=== PATIENT | male | born 1940 | race Caucasian/White ===

== ENCOUNTER → 2016-09-12 | Outpatient (CLI) | payer MEDICARE, BC | END | disposition home or self-care (01) | LOC: PCVCIMAG 10:29 | PROVIDERS: ATTEND Internal Medicine Cardiovascular Disease | DX: I25.10 Atherosclerotic heart disease of native coronary artery without angina pectoris (principal); I48.91 Unspecified atrial fibrillation; E78.00 Pure hypercholesterolemia, unspecified; I10 Essential (primary) hypertension; G47.30 Sleep apnea, unspecified | CPT/HCPCS: 80061; 93005; 93306; G0463 ==

== ENCOUNTER → 2017-01-12 | Outpatient (CLI) | payer MEDICARE, BC ==
--- NOTE | 2017-01-12 17:54 | PCVCIMAG ---
APPROVED REPORT Exam: Stress Echocardiogram Indication: Paroxysmal Atrial Fibrillation, coronary atherosclerosis Patient Location: Echo lab Stress Nurse: Keyla Russo RN Status: routine HR: 68 bpm Rhythm: NSR Procedure The patient underwent an Exercise Stress Test using the Beck Protocol. Blood pressure, heart rate, and EKG were monitored. An Echocardiogram was performed by hydro technician in four stages in quad fashion. At peak stress, four selected images were obtained and placed side by side with resting images for comparison. Stress Test Details Stress Test: Exercise stress testing was performed using a Beck protocol. HR Resting HR: 68 bpmMax Heart Rate (APMHR): 146 bpm Max HR Achieved: 136 bpmTarget HR (85% APMHR): 124 bpm % of APMHR: 93 Recovery HR: 71 bpm HR response to stress: Normal HR response to stress BP ECG Resting ECG: Sinus Rhythm Stress ECG: Sinus Rhythm Arrhythmia: 3 beats of SVT Recovery ECG: NSR w/ non-specific ST abnormality Recovery Arrhythmia: None Clinical Reason for Termination: Maximal effort Stress Symptoms: Dyspnea Exercise duration: 6 min 53 sec Highest Stage Achieved: Stage 3: 3.4 mph at 14% grade. Exercise capacity: 9.6 METs Pre-Stress Echo The resting Echocardiogram showed normal left ventricular contractility with an estimated Ejection Fraction of about 50-55%. Normal wall motion in all segments on baseline images. Post-Stress Echo The stress Echocardiogram showed normal left ventricular contractility with an estimated Ejection Fraction of about 60-65%. Normal augmentation of wall motion in all segments on post stress images. Clinical No clinical or ECG evidence for ischemia. Conclusion Clinical Response: Non-ischemic Stress ECG Response: Equivocal Stress Echo Images: Non-ischemic
== END | disposition home or self-care (01) ==
LOC: PCVCIMAG 09:37
PROVIDERS: ATTEND Internal Medicine Cardiovascular Disease
DX: I25.10 Atherosclerotic heart disease of native coronary artery without angina pectoris (principal); I48.0 Paroxysmal atrial fibrillation; I10 Essential (primary) hypertension
CPT/HCPCS: 93325; 93351

== ENCOUNTER → 2017-09-28 | Outpatient (CLI) | payer MEDICARE, BC | END | disposition home or self-care (01) | LOC: PCVCCLINIC 11:00 | DX: I25.10 Atherosclerotic heart disease of native coronary artery without angina pectoris (principal); I10 Essential (primary) hypertension; E78.00 Pure hypercholesterolemia, unspecified; I71.2 Thoracic aortic aneurysm, without rupture; I48.0 Paroxysmal atrial fibrillation; Z79.899 Other long term (current) drug therapy | CPT/HCPCS: 80061; 93005; G0463 ==

== ENCOUNTER → 2018-02-03 | Outpatient (CLI) | payer MEDICARE, BC ==
[~2018-02-03] MED LIST: REGADENOSON 0.4 MG/5 ML DISP.SYRIN. IV
== END | disposition home or self-care (01) ==
LOC: PCVCIMAG 07:59
DX: I25.10 Atherosclerotic heart disease of native coronary artery without angina pectoris (principal); R06.09 Other forms of dyspnea
CPT/HCPCS: 78452; 93017; A9500; J2785

== ENCOUNTER → 2018-06-23 | Outpatient (CLI) | payer MEDICARE, BC ==
--- NOTE | 2018-06-23 14:39 | PCVCIMAG ---
APPROVED REPORT Study performed: 06/23/2018 12:29:38 EXAM: Comprehensive 2D, Doppler, and color-flow Echocardiogram Patient Location: Echo lab Status: routine BSA: 2.22 HR: 64 bpmBP: 150/100 mmHg Rhythm: NSR Other Information Study Quality: Adequate Risk Factors: Cardiac Risk Factors: HTN, Hyperlipidemia Indications Atrial Fibrillation Dilated Ascending Aorta 2D Dimensions IVSd: 10.63 (7-11mm)LVOT Diam: 23.24 (18-24mm) LVDd: 43.68 mm PWd: 10.50 (7-11mm)Ascending Ao: 43.53 (22-36mm) LVDs: 28.54 (25-40mm) Left Atrium: 35.14 (27-40mm) Aortic Root: 36.65 mm LV Single Plane 4CH: 60.62 % LV Single Plane 2CH: 62.19 % Biplane EF: 61.1 % Volumes Left Atrial Volume (Systole) Single Plane 4CH: 55.44 mLSingle Plane 2CH: 61.84 mL LA ESV Index: 28.00 mL/m2 Aortic Valve AoV Peak Maciej.: 1.27 m/s AO Peak Gr.: 6.42 mmHgLVOT Max P.03 mmHg LVOT Max V: 0.87 m/s FELIPE Vmax: 2.91 cm2 Mitral Valve E/A Ratio: 0.7 MV Decel. Time: 332.74 ms MV E Max Maciej.: 0.68 m/s MV A Maciej.: 0.95 m/s IVRT: 138.41 ms TDI E/Lateral E': 9.71E/Medial E': 9.71 Medial E' Maciej.: 0.07 m/s Lateral E' Maciej.: 0.07 m/s Pulmonary Valve PV Peak Gr.: 2.23 mmHg Pulmonary Vein P Vein S: 0.61 m/sP Vein A: 0.39 m/s P Vein D: 0.60 m/sP Vein A Dur.: 83.0 msec P Vein S/D Ratio: 1.02 Tricuspid Valve TR Peak Maciej.: 2.42 m/s TR Peak Gr.: 23.38 mmHg Left Ventricle The left ventricle is normal size. There is normal LV segmental wall motion. There is normal left ventricular wall thickness. Left ventricular systolic function is normal. The left ventricular ejection fraction is within the normal range. LVEF is 60-65%. The left ventricular diastolic function is normal. Right Ventricle The right ventricle is normal size. The right ventricular systolic function is normal. Atria The left atrium size is normal. The right atrium size is normal. Aortic Valve The aortic valve is normal in structure. Trace aortic regurgitation. There is no aortic valvular stenosis. Mitral Valve The mitral valve is normal in structure. Trace mitral regurgitation. No evidence of mitral valve stenosis. Tricuspid Valve The tricuspid valve is normal in structure. Trace tricuspid regurgitation. Pulmonary artery pressure is 31mmHg. Pulmonic Valve The pulmonary valve is normal in structure. There is no pulmonic valvular regurgitation. Great Vessels The aortic root is normal in size. Ascending Aorta is dilated measuring up to 4.5cm. IVC is normal in size and collapses >50% with inspiration. Pericardium There is no pericardial effusion. <Conclusion> The left ventricle is normal size. LVEF is 60-65%. The left ventricular diastolic function is normal. The right ventricle is normal size. The left atrium size is normal. Trace aortic regurgitation. Trace mitral regurgitation. Trace tricuspid regurgitation. Pulmonary artery pressure is 31mmHg. The aortic root is normal in size. There is no pericardial effusion.
== END | disposition home or self-care (01) ==
LOC: PCVCIMAG 12:29
PROVIDERS: ATTEND Internal Medicine Cardiovascular Disease
DX: I25.10 Atherosclerotic heart disease of native coronary artery without angina pectoris (principal); I48.0 Paroxysmal atrial fibrillation; I10 Essential (primary) hypertension; I71.2 Thoracic aortic aneurysm, without rupture; E78.00 Pure hypercholesterolemia, unspecified; Z88.8 Allergy status to other drugs, medicaments and biological substances; Z79.899 Other long term (current) drug therapy
CPT/HCPCS: 36415; 80061; 93005; 93306; G0463

== ENCOUNTER → 2019-03-08 | Outpatient (CLI) | payer MEDICARE, BC ==
--- NOTE | 2019-03-08 13:07 | PCVCIMAG ---
APPROVED REPORT Study performed: 03/08/2019 10:08:13 Exam: Stress Echocardiogram Indication: Hyperlipidemia, Hypertension Patient Location: Echo lab Stress Nurse: Shivani Gillis RN Status: routine Ht: 5 ft 11 in HR: 66 bpm BP: 140/100 mmHg Rhythm: NSR Medical History Medical History: Dilated ascending Aorta Procedure The patient underwent an Exercise Stress Test using the Beck Protocol. Blood pressure, heart rate, and EKG were monitored. An Echocardiogram was performed by graphic art technician in four stages in quad fashion. At peak stress, four selected images were obtained and placed side by side with resting images for comparison. Stress Test Details Stress Test: Exercise stress testing was performed using a Beck protocol. HR Resting HR: 66 bpmMax Heart Rate (APMHR): 144 bpm Max HR Achieved: 214 bpmTarget HR (85% APMHR): 122 bpm % of APMHR: 148 Recovery HR: 73 bpm HR response to stress: Accelerated HR response to stress BP Resting BP: 140/100 mmHg Max BP: 210/90 mmHg Recovery BP: 156/90 mmHg BP response to stress: Abnormal hypertensive response to stress. ECG Resting ECG: Sinus Rhythm Stress ECG: Sinus Tachycardia Arrhythmia: SVT Recovery Arrhythmia: SVT Clinical Reason for Termination: Maximal effort, Dyspnea Stress Symptoms: Dyspnea Exercise duration: 6 min 35 sec Highest Stage Achieved: Stage 3: 3.4 mph at 14% grade. Exercise capacity: 8.80 METs Overall Exercise Capacity for Age: Normal Pre-Stress Echo The resting Echocardiogram showed normal left ventricular contractility with an estimated Ejection Fraction of about >55%. Normal wall motion in all segments on baseline images. Post-Stress Echo The stress Echocardiogram showed normal left ventricular contractility with an estimated Ejection Fraction of about >55%. Normal augmentation of wall motion in all segments on post stress images. Clinical No clinical or ECG evidence for ischemia. Conclusion Clinical Response: Non-ischemic Exercise Capacity: Average Stress ECG Response: Non-ischemic Stress Echo Images: Non-ischemic The left ventricle is normal in size and wall thickness in both the rest and stress images. Ascending Aorta measures 4.3cm. Trace Tricuspid regurgitation.SVT was noted w rates 215 bpm dizzy and sob were assoc sx spontaneously resolved Other Information Study Quality: Good <Conclusion> The left ventricle is normal in size and wall thickness in both the rest and stress images. Ascending Aorta measures 4.3cm. Trace Tricuspid regurgitation.SVT was noted w rates 215 bpm dizzy and sob were assoc sx spontaneously resolved
== END | disposition home or self-care (01) ==
LOC: PCVCIMAG 09:38
PROVIDERS: ATTEND Internal Medicine Cardiovascular Disease
DX: I48.0 Paroxysmal atrial fibrillation (principal); I47.1 Supraventricular tachycardia; I25.10 Atherosclerotic heart disease of native coronary artery without angina pectoris; E78.00 Pure hypercholesterolemia, unspecified; I71.2 Thoracic aortic aneurysm, without rupture; G47.33 Obstructive sleep apnea (adult) (pediatric); I10 Essential (primary) hypertension; Z99.89 Dependence on other enabling machines and devices
CPT/HCPCS: 93306; 93325; G0463